=== PATIENT | male | born 1965 | race Caucasian/White ===

== ENCOUNTER → 2016-11-02 | Outpatient (CLI) | payer BC ==
[~2016-11-02] MED LIST: LISI10TA PO; METF-841 PO; METF1TAB85 PO; MULT-506 PO; NIAC500T11 PO; OMEG10007 PO
[2016-11-02 12:22] LABS: BASO % 0.1 %; BASO ABS # 0.01 K/uL (0-0.2); COMPLETE YES; EOS % 1.7 %; HEMATOCRIT 45.2 % (42-52); IG% 0.3 %; LYMPH % 21.7 %; LYMPH ABS # 1.51 K/uL (1.2-3.4); MEAN CELL VOLUME 86.9 fL (80-100); MEAN CORPUSCULAR HGB CONC 34.5 g/dl (32-36); MEAN PLATELET VOLUME 10.2 fL (7.4-10.4); MONO % 5.9 %; NEUT % 70.3 %; PLATELET COUNT 258 K/uL (130-400); WHITE BLOOD COUNT 6.96 K/uL (4.8-10.8)
[2016-11-02 12:57] LABS: ESTIMATED AVERAGE GLUCOSE 131 mg/dl; HA1C FLAG Normal (Normal)
[2016-11-02 13:02] LABS: ALT/SGPT 48 U/L (12-78); BLOOD UREA NITROGEN 9 mg/dl (7-18); BUN/CREATININE RATIO 11.6 (10-20); CALCIUM 8.7 mg/dl (8.5-10.1); CARBON DIOXIDE 26 mmol/L (21-32); CHLORIDE 106 mmol/L (98-107); CHOLESTEROL 116 mg/dl (0-200); CREATININE 0.81 mg/dl (0.60-1.40); GLUCOSE 115 mg/dl (70-99); POTASSIUM 4.1 mmol/L (3.5-5.1); SODIUM 141 mmol/L (136-145)
[2016-11-02 13:11] LABS: ALB/GLOB RATIO 1.2 (0.9-2); ALKALINE PHOSPHATASE 44 U/L (45-117); AST/SGOT 50 U/L (15-37); CHOLESTEROL/HDL RATIO 3.1; HDL CHOLESTEROL 37 mg/dl; LDL CHOLESTEROL CALCULATED 21 mg/dl; TRIGLYCERIDES 292 mg/dl (0-150); VERY LOW DENSITY LIPOPROT CALC 58 mg/dl
[2016-11-02 13:24] LABS: RATIO 6.1 mcg/mg (0-30.0)
== END | disposition home or self-care (01) ==
LOC: C.LAB1850 11:28
PROVIDERS: ATTEND Internal Medicine
DX: E11.9 Type 2 diabetes mellitus without complications (principal); E78.5 Hyperlipidemia, unspecified; R53.83 Other fatigue; E55.9 Vitamin D deficiency, unspecified; I10 Essential (primary) hypertension

== ENCOUNTER 2016-11-10 22:54 | Emergency (ER) | payer BC ==
[~2016-11-10] VITALS: Ht 182.9 cm; Wt 149.0 kg
[~2016-11-10 22:54] MED LIST changes: -METF-841 PO
[2016-11-10 22:58] VITALS: BP 140/82; PULSE 79; TEMP 36.7; O2SAT 95; Ht 182.9 cm; Wt 149.0 kg
--- NOTE | 2016-11-10 23:10 | EMERGENCY ROOM VISIT NOTE ---
History Report prepared by S[place]: Wolfgang Salas Under the Supervision of: Dr. Del Antony D.O. First contact with patient: 23:01 Chief Complaint: BITE Stated Complaint: TICK UNDER LF ARM History of Present Illness The patient is a 51 year old male who presents to the Emergency Room with complaints of a tick bite that occurred 24 hours ago. The patient's current pain is a 1/10 in severity. He worked in his yard yesterday when he noticed the tick embedded on his skin. He waited 24 hours, but it was still there. 1 hour ago, he then tried to get the tick out and off of him. He used rubbing alcohol and a pair of tweezers. He could only get part of the tick out. He checked the areas on his body that he could see for other ticks as well. He has type two diabetes and hypertension. He has not had any surgeries. Source of History: patient Onset: 24 hours ago Position: arm (left, under) Symptom Intensity: 1/10 Quality: other (bite) Timing: constant Note: He denies any other symptoms. Review of Systems See HPI for pertinent positives & negatives. A total of 6 systems reviewed and were otherwise negative. Past Medical & Surgical Medical Problems: (1) Diabetes (2) Hypertension Family History Patient reports no known family medical history. Social History Smoking Status: Never Smoker Smokeless Tobacco Use: No Alcohol Use: occasionally Drug Use: none Marital Status: Current/Historical Medications Scheduled Fish Oil (Niota-3), 1 CAP PO BID Lisinopril (Prinivil), 10 MG PO QPM Metformin HCl (Metformin HCl ER), 1,000 MG PO BID Multivitamin (Multivitamin), 1 TAB PO QAM Niacin (Niacin), 500 MG PO BID Allergies Coded Allergies: Apricot (Verified Allergy, Unknown, HIVES, 11/10/16) Mushroom (Verified Allergy, Unknown, HIVES, 11/10/16) Physical Exam Vital Signs Date Time Temp Pulse Resp B/P Pulse Ox O2 Delivery O2 Flow Rate FiO2 11/10/16 22:58 36.7 79 18 140/82 95 Room Air Physical Exam GENERAL: Patient is awake, alert, and in no acute distress. Patient is resting comfortably and showing no signs of anxiety EYES: The conjunctivae are clear. The pupils are round and reactive. EARS, NOSE, MOUTH AND THROAT: The nose is without any evidence of any deformity. Mucous membranes are moist tongue is midline RESPIRATORY: Normal respiratory effort is noted there is no evidence of wheezing rhonchi or rales CARDIOVASCULAR: Regular rate and rhythm noted there no murmurs rubs or gallops normal S1 normal S2 GASTROINTESTINAL: The abdomen is soft. Bowel sounds are present in all quadrants. Abdomen is nontender MUSCULOSKELETAL/EXTREMITIES: There is no evidence of gross deformity full range of motion is noted in the hips and shoulders SKIN: There is no obvious evidence of any rash. There are no petechiae, pallor or cyanosis noted. Trace pedal edema bilaterally. Tick mouth parts noted in the left anterior chest wall. There was mild erythema surrounding but no signs of a lyme rash. NEUROLOGIC: Patient is awake alert and oriented x3. Medical Decision & Procedures Medications Administered Medications (Trade) Dose Ordered Sig/Shawna Route Start Time Stop Time Status Last Admin Dose Admin Doxycycline Hyclate (Vibramycin Cap) 200 mg ONE ONCE PO 11/10/16 23:30 11/10/16 23:31 DC 11/10/16 23:22 200 MG ED Course 2301: The patient was evaluated in room B12. A complete history and physical examination were performed. 2330: Ordered Doxycycline Hyclate 200 mg PO 2335: Upon reevaluation, the patient is resting. I discussed the results and treatment plan with him. He verbalized agreement of the treatment plan. He was discharged home. Medical Decision Differential diagnosis includes: Tick removal. Nursing notes reviewed. The patient is a 51-year-old male who presented to the emergency department for an evaluation of retained tick parts left in his left anterior chest wall. There is no signs of Lyme disease at this time. He was treated with antibiotics to prophylax against Lyme disease for uncomplicated tick bite. Mouth parts removed in the emergency department. He was encouraged to continue using triple antibiotic ointment to the area. He was also encouraged to follow-up with his primary care physician this week for reevaluation. Impression Primary Impression: Tick bite with subsequent removal of tick Scribe Attestation The scribe's documentation has been prepared under my direction and personally reviewed by me in its entirety. I confirm that the note above accurately reflects all work, treatment, procedures, and medical decision making performed by me. Departure Information Dispostion Home / Self-Care Referrals RV. Gamboa MD (PCP) Forms HOME CARE DOCUMENTATION FORM, IMPORTANT VISIT INFORMATION Patient Instructions Bites Tick, Disease Lyme Prevent, My [facility] [employer] Additional Instructions Continue to use triple antibiotic ointment to the area 2 times a day. Follow-up with your family doctor for recheck.
[2016-11-10] MEDS ORDERED: METF-841 PO (23:14)
[2016-11-10] MEDS ORDERED: DOXYCYCLINE HYCLATE 100 MG CAP PO ONE (23:30)
== END 2016-11-10 23:22 | disposition home or self-care (01) ==
LOC: C.EDB 22:55
DX: S30.861A Insect bite (nonvenomous) of abdominal wall, initial encounter (principal); W57.XXXA Bitten or stung by nonvenomous insect and other nonvenomous arthropods, initial encounter; E11.9 Type 2 diabetes mellitus without complications; I10 Essential (primary) hypertension

== ENCOUNTER → 2017-05-13 | Outpatient (CLI) | payer BC ==
[~2017-05-13] MED LIST changes: +METF-841 PO; -METF1TAB85 PO
[2017-05-13 10:06] LABS: ESTIMATED AVERAGE GLUCOSE 126 mg/dl; HA1C FLAG Normal (Normal)
[2017-05-13 10:10] LABS: ALT/SGPT 36 U/L (12-78); AST/SGOT 29 U/L (15-37); BLOOD UREA NITROGEN 18 mg/dl (7-18); CALCIUM 8.7 mg/dl (8.5-10.1); CARBON DIOXIDE 26 mmol/L (21-32); CHLORIDE 108 mmol/L (98-107); GLUCOSE 141 mg/dl (70-99); SODIUM 141 mmol/L (136-145)
[2017-05-13 10:15] LABS: ALB/GLOB RATIO 1.2 (0.9-2); ALKALINE PHOSPHATASE 51 U/L (45-117)
== END | disposition home or self-care (01) ==
LOC: C.LAB1850 07:06
PROVIDERS: ATTEND Internal Medicine
DX: E11.9 Type 2 diabetes mellitus without complications (principal)

== ENCOUNTER → 2017-07-01 | Outpatient (CLI) | payer BC ==
--- NOTE | 2017-07-01 09:26 | DIAGNOSTIC IMAGING REPORT ---
R KNEE 3 VIEWS CLINICAL HISTORY: Right knee pain. COMPARISON: None FINDINGS: Alignment of the right knee is anatomic. There is no fracture or joint effusion. There is mild narrowing of the patellofemoral compartment with osteophytosis. No osseous lesion is identified. IMPRESSION: 1. No acute fracture or joint effusion. 2. Mild osteoarthritis of the patellofemoral compartment. Electronically signed by: Vipin Gallardo M.D. 07/01/2017 9:25 AM Dictated Date/Time: 07/01/2017 9:19 AM
== END | disposition home or self-care (01) ==
LOC: C.RAD1850 09:02
PROVIDERS: ATTEND Physician Assistant
DX: M25.561 Pain in right knee (principal)

== ENCOUNTER → 2017-11-15 | Outpatient (CLI) | payer BC ==
[2017-11-15 09:41] LABS: ALBUMIN 3.7 gm/dl (3.4-5.0); ALT/SGPT 49 U/L (12-78); AST/SGOT 33 U/L (15-37); BLOOD UREA NITROGEN 16 mg/dl (7-18); CALCIUM 9.4 mg/dl (8.5-10.1); CARBON DIOXIDE 30 mmol/L (21-32); CREATININE 0.96 mg/dl (0.60-1.40); GLUCOSE 105 mg/dl (70-99); POTASSIUM 4.3 mmol/L (3.5-5.1); SODIUM 138 mmol/L (136-145)
[2017-11-15 09:56] LABS: ALKALINE PHOSPHATASE 56 U/L (45-117); CHOLESTEROL 130 mg/dl (0-200); LDL CHOLESTEROL CALCULATED 53 mg/dl; TOTAL PROTEIN 7.7 gm/dl (6.4-8.2)
[2017-11-15 09:59] LABS: HEMOGLOBIN A1C 5.9 % (4.5-5.6)
== END | disposition home or self-care (01) ==
LOC: C.LAB1850 07:07
PROVIDERS: ATTEND Internal Medicine
DX: E11.9 Type 2 diabetes mellitus without complications (principal); E55.9 Vitamin D deficiency, unspecified